=== PATIENT | female | born 1980 | race Two or more races ===

== ENCOUNTER 2024-07-04 07:08 | Outpatient (CLI) | payer OTHER | END 2024-07-04 07:17 | disposition home or self-care (01) | LOC: SONOGRAMA 07:08 | PROVIDERS: ATTEND Student in an Organized Health Care Education/Training Program | DX: K80.80 Other cholelithiasis without obstruction (principal) ==

== ENCOUNTER 2024-07-23 10:27 | Day surgery (SDC) | payer OTHER ==
[2024-07-16 08:54] VITALS: BP 124/86
[2024-07-16 08:56] LABS: HEMATOCRIT 40.7 % (36.0-45.00); HEMOGLOBIN 13.5 g/dL (12.0-15.00); MEAN CELL VOLUME 84.5 fL (80.00-100.00); MEAN CORPUSCULAR HEMOGLOBIN 28.1 pg (27.00-32.0); MEAN CORPUSCULAR HGB CONC 33.2 g/dl (32.0-36.0); PLATELET COUNT 315 K/uL (150-450); RED BLOOD COUNT 4.82 M/uL (4.00-6.00); RED CELL DISTRIBUTION WIDTH 15.2 % (11.5-14.5)
[2024-07-16 08:57] LABS: URINE APPEARANCE Clear; URINE BILIRRUBIN Negative (NEGATIVE); URINE BLOOD Negative; URINE COLOR Yellow; URINE GLUCOSE Negative (NEGATIVE); URINE KETONE Negative (NEGATIVE); URINE LEUKOCYTE Negative; URINE NITRATE Negative; URINE PROTEIN Negative (NEGATIVE); URINE UROBILINOGEN 0.2 E.U./dl
[2024-07-16 08:58] LABS: URINE BACTERIA 457.7 uL (0.0-1933); URINE EPITHELIAL CELLS 36.8 uL (0.0-38.8); URINE RBC 3.6 uL (0.0-20.8); URINE WBC 3.6 uL (0.0-23.2)
[2024-07-16 09:31] LABS: INR 0.97; PARTIAL THROMBOPLASTIN TIME 29.9 SECONDS (22.0-34.0); PROTHROMBIN TIME 10.6 SECONDS (9.0-11.5)
[2024-07-16 10:02] LABS: ALBUMIN 3.6 gm/dL (3.4-5.0); BILIRUBIN TOTAL 0.38 mg/dL (0.3-1.2); CALCIUM 8.8 mg/dL (8.5-10.1); CREATININE SERUM 0.58 mg/dL (0.55-1.02); GLOBULINA 4.1 G/DL (2.4-3.5); POTASSIUM 4.02 mEq/L (3.5-5.1); TOTAL PROTEIN 7.7 gm/dL (6.4-8.2)
[~2024-07-23] VITALS: Ht 157.5 cm; Wt 111.6 kg
[~2024-07-23 10:27] MED LIST: CATAFLAM; ELAVIL; NORFLEX
[2024-07-23] MEDS ORDERED: CEFAZOLIN SODIUM 1,000 MG VIAL ONE (12:23)
[2024-07-23] MEDS ORDERED: BUPIVACAINE HCL 30 ML VIAL IJ ONE (14:30)
[2024-07-23] MEDS ORDERED: LIDOCAINE HCL 1%/EPINEPHRINE 20ML VIAL IJ ONE (14:30)
[2024-07-23] MEDS ORDERED: SUGAMMADEX SODIUM 200 MG/2 ML VIAL IV ONE (14:50)
[2024-07-23] MEDS ORDERED: CHLORHEXIDINE GLUCONATE 120 ML BOTTLE TOP ONE (14:52)
[2024-07-23] MEDS ORDERED: MORPHINE SULFATE 4 MG/ML VIAL IV ONE (16:00)
== END 2024-07-23 17:15 | disposition home or self-care (01) ==
LOC: CIR.AMB 10:27
PROVIDERS: ATTEND Student in an Organized Health Care Education/Training Program
DX: K80.10 Calculus of gallbladder with chronic cholecystitis without obstruction (principal); M79.7 Fibromyalgia

== ENCOUNTER → 2025-02-21 08:35 | Outpatient (CLI) | payer OTHER ==
[2025-02-21 09:52] LABS: BASO % 0.6 % (0.1-1.2); EOS # 0.12 (0.04-0.54); EOS % 1.5 % (0.7-7.0); LYMPH # 1.80 (1.18-3.74); LYMPH % 22.8 % (19.3-53.1); MEAN PLATELET VOLUME 11.10 fl (9.4-12.4); MONO # 0.64 (0.24-0.82); MONO % 8.1 % (4.7-12.5); NEUT # 5.27 (1.56-6.13); NEUT % 66.7 % (34.0-71.1); RED CELL DISTRIBUTION WIDTH 12.8 % (11.6-14.4)
[2025-02-21 10:05] LABS: URINE APPEARANCE Clear; URINE BILIRRUBIN Negative (NEGATIVE); URINE BLOOD Negative; URINE COLOR Yellow; URINE GLUCOSE Negative (NEGATIVE); URINE KETONE Negative (NEGATIVE); URINE LEUKOCYTE Negative; URINE NITRATE Negative; URINE PROTEIN Negative (NEGATIVE); URINE UROBILINOGEN 0.2 E.U./dl
[2025-02-21 10:07] LABS: URINE BACTERIA 232.8 uL (0.0-1933); URINE EPITHELIAL CELLS 7.6 uL (0.0-38.8); URINE RBC 3.9 uL (0.0-20.8)
[2025-02-21 10:09] LABS: URINE CAST 0.00 uL (0.0-1.40); URINE WBC 1.3 uL (0.0-23.2)
[2025-02-21 10:34] LABS: ALT/SGPT 25.0 U/L (12-78); AST/SGOT 15.0 U/L (15-37); BILIRUBIN TOTAL 0.46 mg/dL (0.3-1.2); BUN CREA RATIO 21.0 (7.0-25.0); CHOL HDL RATIO 3.9 (0-5.0); CREATININE SERUM 0.66 mg/dL (0.55-1.02); GFR 97.74; GLOBULINA 3.8 G/DL (2.4-3.5); GLUCOSE FASTING 101.0 mg/dL (65-100); HDL 39.0 mg/dl (40-60); LDL 94.0 mg/dl (0-130); OSMOLALITY SERUM 278.0 MOSM/KG (275-295); TSH 2.15 uIU/mL (0.358-3.74); VLDL 21.0 (0-39)
== END | disposition home or self-care (01) ==
LOC: LAB 08:35
DX: E55.9 Vitamin D deficiency, unspecified (principal); I11.9 Hypertensive heart disease without heart failure; Z12.11 Encounter for screening for malignant neoplasm of colon; R30.0 Dysuria; R06.9 Unspecified abnormalities of breathing; E11.8 Type 2 diabetes mellitus with unspecified complications; E78.2 Mixed hyperlipidemia; E16.2 Hypoglycemia, unspecified; K62.5 Hemorrhage of anus and rectum; N92.5 Other specified irregular menstruation

== ENCOUNTER 2025-02-26 14:39 | Outpatient (CLI) | payer OTHER | END 2025-02-26 14:42 | disposition home or self-care (01) | LOC: MAMO-SONO 14:39 | PROVIDERS: ATTEND Surgery | DX: N60.11 Diffuse cystic mastopathy of right breast (principal); N60.12 Diffuse cystic mastopathy of left breast ==

== ENCOUNTER 2025-03-14 08:42 | Outpatient (CLI) | payer OTHER | END 2025-03-14 08:46 | disposition home or self-care (01) | LOC: LAB 08:42 | PROVIDERS: ATTEND General Practice | DX: L21.9 Seborrheic dermatitis, unspecified (principal); R77.9 Abnormality of plasma protein, unspecified; R76.0 Raised antibody titer; D84.1 Defects in the complement system ==